=== PATIENT | male | born 1995 | race African-American/Black ===

== ENCOUNTER 2018-01-02 23:35 | Emergency (ER) | payer BC ==
[2018-01-03] MEDS: IBUPROFEN 800 MG TABLET. PO (00:04)
[2018-01-03 00:05] LABS: ADD MAN DIFF? NO
[2018-01-03 00:09] LABS: BASO % 0 % (0-3); EOS # 0.3 x10^3/uL (0.0-0.7); EOS % 4 % (0-3); HEMATOCRIT 38.7 % (39.0-53.0); HEMOGLOBIN 13.2 g/dL (13.0-17.5); LYMPH # 3.2 x10^3/uL (1.0-4.8); LYMPH % 46 % (24-48); MEAN CORPUSCULAR HEMOGLOBIN 31 pg (25-35); MEAN CORPUSCULAR HGB CONC 34 g/dL (31-37); MEAN CORPUSCULAR VOLUME 91 fL (79-100); MONO # 0.5 x10^3/uL (0.0-1.1); MONO % 7 % (0-9); NEUT % 43 % (31-73); PLATELET COUNT 169 x10^3/uL (140-400); RED BLOOD COUNT 4.27 x10^6/uL (4.30-5.70); RED CELL DISTRIBUTION WIDTH 12.3 % (11.5-14.5)
[2018-01-03 00:23] LABS: ANION GAP 5 (6-14); BLOOD UREA NITROGEN 16 mg/dL (8-26); BUN/CREATININE RATIO 16 (6-20); CALCIUM 9.2 mg/dL (8.5-10.1); CARBON DIOXIDE 31 mmol/L (21-32); CHLORIDE 103 mmol/L (98-107); GLUCOSE 94 mg/dL (70-99); POTASSIUM 4.1 mmol/L (3.5-5.1); SODIUM 139 mmol/L (136-145)
[2018-01-03 00:27] LABS: ALBUMIN 4.3 g/dL (3.4-5.0); ALBUMIN/GLOBULIN RATIO 1.1 (1.0-1.7); ALK PHOS 46 U/L (46-116); ALT (SGPT) 24 U/L (16-63); AST (SGOT) 19 U/L (15-37); TOTAL BILIRUBIN 0.5 mg/dL (0.2-1.0); TOTAL PROTEIN 8.1 g/dL (6.4-8.2)
[2018-01-03 00:35] LABS: TROPONINI < 0.017 ng/mL (0.000-0.055)
== END 2018-01-03 00:59 | disposition home or self-care (01) ==
LOC: ER 23:35
DX: R07.89 Other chest pain (principal)
CPT/HCPCS: 36415; 71045; 80053; 84484; 85025; 93005; 99285-25

== ENCOUNTER 2019-04-01 16:25 | Emergency (ER) | payer BC ==
[~2019-04-01] VITALS: Ht 165.1 cm; Wt 68.0 kg
[~2019-04-01 16:25] MED LIST: IBUP-1060 PO
[2019-04-01 17:23] VITALS: BP 116/54
--- NOTE | 2019-04-01 17:24 | PHYS DOC ---
Past Medical History Past Medical History: No Pertinent History (FEDERICO MCKEON APRN) Alcohol Use: None Drug Use: None (FEDERICO MCKEON APRN) Adult General Chief Complaint Chief Complaint: LOWEREXTREMITY INJURY HPI HPI Patient is a 23 year old AA male, accompanied by his father, who presents to the ER with complaints of R foot and R ankle pain after accidentally kicking a step in front of him earlier today. Pt states immediately after the injury he was able to ambulate without pain. However, this afternoon the foot and ankle became painful. Pt currently rates his pain a 7/10 on the pain scale, he took 2 ibuprofen about an hour [employer] and that has helped to reduce his pain. He denies any need for more pain medications at this time. (FEDERICO MCKEON APRN) Review of Systems Review of Systems Constitutional: Denies fever or chills [] Musculoskeletal: See HPI Integument: Denies rash or skin lesions [] Neurologic: Denies headache, focal weakness or sensory changes [] Complete systems were reviewed and found to be within normal limits, except as documented in this note. (FEDERICO MCKEON APRN) Allergies Allergies Allergies Coded Allergies Type Severity Reaction Last Updated Verified No Known Drug Allergies 01/02/18 No (WALDEMAR THRASHER MD) Physical Exam Physical Exam Constitutional: Well developed, well nourished, no acute distress, non-toxic appearance. [] HENT: Normocephalic, atraumatic, bilateral external ears normal, nose normal. [] Eyes: PERRLA, EOMI, conjunctiva normal, no discharge. [] Neck: Normal range of motion, no stridor. [] Cardiovascular:Heart rate regular rhythm, no murmur [] Lungs & Thorax: Respirations even and unlabored, no retractions, no respiratory distress Skin: Warm, dry, no erythema, no rash. [] Extremities: Tenderness to palpation of anterior right ankle and midfoot, no obvious deformity, no cyanosis, no clubbing, ROM intact, no edema. [] Neurologic: Alert and oriented X 3, normal motor function, normal sensory function, no focal deficits noted. [] Psychologic: Affect normal, judgement normal, mood normal. [] (FEDERICO MCKEON APRN) Current Patient Data Vital Signs Vital Signs Date Time Temp Pulse Resp B/P (MAP) Pulse Ox O2 Delivery O2 Flow Rate FiO2 04/01/19 17:23 98.2 68 16 116/54 (74) 97 Room Air 98.2 (WALDEMAR THRASHER MD) EKG EKG [] (FEDERICO MCKEON APRN) Radiology/Procedures Radiology/Procedures PROCEDURE: ANKLE RIGHT 3V FOOT RIGHT 3V, ANKLE RIGHT 3V 04/01/2019 4:52 PM INDICATION: Right foot and ankle pain after injury COMPARISON: None available. TECHNIQUE: 3 views Findings 3 views the right ankle are provided. FINDINGS: There is no acute fracture or dislocation. Tibial plafond and talar dome are intact. Ankle mortise is congruent. Bone mineralization is within normal limits. Joint spaces are maintained. Regional soft tissues are within normal limits. There is no soft tissue gas or osseous erosion. IMPRESSION: No acute fracture or dislocation. [] PROCEDURE: FOOT RIGHT 3V FOOT RIGHT 3V, ANKLE RIGHT 3V 04/01/2019 4:52 PM INDICATION: Right foot and ankle pain after injury COMPARISON: None available. TECHNIQUE: 3 views Findings 3 views the right ankle are provided. FINDINGS: There is no acute fracture or dislocation. Tibial plafond and talar dome are intact. Ankle mortise is congruent. Bone mineralization is within normal limits. Joint spaces are maintained. Regional soft tissues are within normal limits. There is no soft tissue gas or osseous erosion. IMPRESSION: No acute fracture or dislocation. (FEDERICO MCKEON APRN) Course & Med Decision Making Course & Med Decision Making Pertinent Labs and Imaging studies reviewed. (See chart for details) [] (FEDERICO MCKEON APRN) Course & Med Decision Making Staff Physician Addendum: I was working in the ER during the course of this patient's visit. I was available for consultation as needed, but I was not directly involved in the care of this patient. (WALDEMAR THRASHER MD) Dragon Disclaimer Dragon Disclaimer This electronic medical record was generated, in whole or in part, using a voice recognition dictation system. (FEDERICO MCKEON APRN) Departure Departure Impression: Primary Impression: Contusion of left foot, initial encounter Additional Impression: Left ankle pain Disposition: 01 HOME, SELF-CARE Condition: STABLE Referrals: HAILE PAYNE (PCP) Patient Instructions: Contusion, [id number] Additional Instructions: Wear the joy wrap provided. Tylenol or ibuprofen as needed for pain. Recommend application of ice and elevation of your left foot as needed for comfort. Follow up with your primary care doctor or Dr. Hidalgo in 1-2 days if symptoms persist, return to the ER if symptoms worsen. Problem Qualifiers Additional Impression: Left ankle pain Chronicity: acute Qualified Codes: M25.572 - Pain in left ankle and joints of left foot FEDERICO MCKEON APRN Apr 01, 2019 17:24 WALDEMAR THRASHER MD Apr 02, 2019 23:10
--- NOTE | 2019-04-01 17:32 | RAD ---
FOOT RIGHT 3V, ANKLE RIGHT 3V 04/01/2019 4:52 PM INDICATION: Right foot and ankle pain after injury COMPARISON: None available. TECHNIQUE: 3 views Findings 3 views the right ankle are provided. FINDINGS: There is no acute fracture or dislocation. Tibial plafond and talar dome are intact. Ankle mortise is congruent. Bone mineralization is within normal limits. Joint spaces are maintained. Regional soft tissues are within normal limits. There is no soft tissue gas or osseous erosion. IMPRESSION: No acute fracture or dislocation. Electronically signed by: Yin Francisco MD (04/01/2019 5:29 PM) [facility] [id number]
--- NOTE | 2019-04-01 17:32 | RAD ---
FOOT RIGHT 3V, ANKLE RIGHT 3V 04/01/2019 4:52 PM INDICATION: Right foot and ankle pain after injury COMPARISON: None available. TECHNIQUE: 3 views Findings 3 views the right ankle are provided. FINDINGS: There is no acute fracture or dislocation. Tibial plafond and talar dome are intact. Ankle mortise is congruent. Bone mineralization is within normal limits. Joint spaces are maintained. Regional soft tissues are within normal limits. There is no soft tissue gas or osseous erosion. IMPRESSION: No acute fracture or dislocation. Electronically signed by: Yin Francisco MD (04/01/2019 5:29 PM) [facility] [place]
== END 2019-04-01 17:49 | disposition home or self-care (01) ==
LOC: ER 16:25
DX: S90.31XA Contusion of right foot, initial encounter (principal); M25.572 Pain in left ankle and joints of left foot; W22.8XXA Striking against or struck by other objects, initial encounter; Y93.89 Activity, other specified; Y92.89 Other specified places as the place of occurrence of the external cause; Y99.8 Other external cause status
CPT/HCPCS: 73610; 73630; 99284